=== PATIENT | male | born 1960 | race Caucasian/White ===

== ENCOUNTER 2017-04-06 23:50 | Emergency (ER) | payer OTHER ==
[2017-04-07 00:01] VITALS: BMI 34.0
[2017-04-07 00:38] VITALS: BP 168/100; PULSE 80
--- NOTE | 2017-04-07 01:17 | PDOC ---
History of Present Illness - General Chief Complaint: Nasal Bleeding Stated Complaint: NOSE BLEED Time Seen by Provider: 04/07/17 00:44 History Source: Patient - History of Present Illness Initial Comments: 04/07/17 06:22 epistaxis on coumadin no trauma + vigorous sneeze Timing/Duration: 1-3 hours Severity: moderate Modifying Factors: worse with: cold therapy, eating Associated Symptoms: denies: chest pain, diaphoresis, headaches, shortness of breath, syncope, weakness Past History - Past Medical History Allergies/Adverse Reactions: Allergies Allergy/AdvReac Type Severity Reaction Status Date / Time No Known Allergies Allergy Verified 04/06/17 23:51 Home Medications: Ambulatory Orders Losartan Potassium 100 mg PO DAILY 04/07/17 Metformin HCl 500 mg PO BID 04/07/17 Metoprolol Tartrate 100 mg PO DAILY 04/07/17 Warfarin Na [Coumadin] 5 mg PO DAILY 04/07/17 Warfarin Na [Coumadin] 7.5 mg PO WEEKLY 04/07/17 Cardiac Disorders: Yes (A FIB) COPD: No Diabetes: Yes HTN: Yes - Suicide/Smoking/Psychosocial Hx Smoking History: Never smoked Have you smoked in the past 12 months: No Information on smoking cessation initiated: No Hx Alcohol Use: No Drug/Substance Use Hx: No Substance Use Type: None Review of Systems - Review of Systems Able to Perform ROS?: Yes All Other Systems: Reviewed and Negative *Physical Exam - Vital Signs Last Vital Signs Temp Pulse Resp BP Pulse Ox 80 18 168/100 97 04/07/17 00:36 04/07/17 00:36 04/07/17 00:36 04/07/17 00:36 - Physical Exam General Appearance: Yes: Nourished HEENT: positive: Other (vigorous bleeding from b/l nares) Neck: negative: Decreased range of motion Respiratory/Chest: positive: Lungs Clear Cardiovascular: positive: Regular Rhythm Musculoskeletal: positive: Normal Inspection Extremity: positive: Normal Capillary Refill, Normal Inspection Integumentary: positive: Normal Color Neurologic: positive: Fully Oriented Medical Decision Making - Medical Decision Making 04/07/17 06:24 hemostasis achieved with rapid rhino x 2 d/w pt R/B of abx. given current use of coumadin, will not initiate abx ENT fu tomorrow *DC/Admit/Observation/Transfer Diagnosis at time of Disposition: Epistaxis - Discharge Dispostion Disposition: HOME Condition at time of disposition: Stable - Referrals Referrals: Quinten Joya MD [Staff Physician] - Call tomorrow - Patient Instructions Printed Discharge Instructions: DI for Nosebleed - Post Discharge Activity
== END 2017-04-07 01:20 | disposition home or self-care (01) ==
LOC: FER 23:50
PROC: 2Y41X5Z Packing of Nasal Region using Packing Material (ICD-10-PCS; principal; 2017-04-06)
DX: R04.0 Epistaxis (principal); E11.9 Type 2 diabetes mellitus without complications; I48.91 Unspecified atrial fibrillation; I10 Essential (primary) hypertension; Z79.84 Long term (current) use of oral hypoglycemic drugs; Z79.01 Long term (current) use of anticoagulants
CPT/HCPCS: 99281-25

== ENCOUNTER 2024-05-03 08:10 | Emergency (ER) | payer OTHER ==
[2024-05-03] MEDS ORDERED: DIPHTH,PERTUSS(ACELL),TET 0.5 ML DISP.SYRIN IM ONE (08:40)
[2024-05-03] MEDS ORDERED: ACETAMINOPHEN 500 MG TABLET (FP) ONE (08:40)
[2024-05-03 08:43] VITALS: RESP 18; TEMP 98.2; BMI 34.0
[2024-05-03] MEDS: DIPHTH,PERTUSS(ACELL),TET 0.5 ML DISP.SYRIN IM ONE (08:53)
[2024-05-03] MEDS: ACETAMINOPHEN 500 MG TABLET (FP) PO ONE (08:59)
[2024-05-03 12:39] VITALS: BP 136/93; PULSE 94
== END 2024-05-03 10:33 | disposition home or self-care (01) ==
LOC: FER 08:10
PROC: 0HQ1XZZ Repair Face Skin, External Approach (ICD-10-PCS; principal; 2024-05-03)
PROC: 3E0234Z Introduction of Serum, Toxoid and Vaccine into Muscle, Percutaneous Approach (ICD-10-PCS; 2024-05-03)
DX: S02.2XXA Fracture of nasal bones, initial encounter for closed fracture (principal); S01.21XA Laceration without foreign body of nose, initial encounter; S00.81XA Abrasion of other part of head, initial encounter; W01.198A Fall on same level from slipping, tripping and stumbling with subsequent striking against other object, initial encounter
CPT/HCPCS: 70450-TC; 70486-TC; 72125-TC; 90715; 99284-25